=== PATIENT | male | born 1940 | race Caucasian/White ===

== ENCOUNTER 2018-04-10 15:40 | Emergency (ER) | payer MEDICARE, OTHER ==
--- NOTE | 2018-04-10 16:15 | C.PDOC ---
History Of Present Illness 77 year old male presents to the ED for evaluation of exacerbated right hand pain s/p mechanical injury sustained prior to arrival. The patient reports he was putting a file away in his office when the cabinet fell, instinctively he grabbed the cabinet causing him to strain the right hand. He also notes having right arm pain prior to the injury over the anterior cubital fossa of the right elbow that radiates to the forearm and into the wrist which has been exacerbated by the mechanical injury. Denies fever, chills, numbness, tingling, head injury, other injuries, and any other associated symptoms. Time Seen by Provider: 04/10/18 16:11 Chief Complaint (Nursing): Upper Extremity Problem/Injury History Per: Patient History/Exam Limitations: no limitations Onset/Duration Of Symptoms: Other (prior to arrival. ) Current Symptoms Are (Timing): Still Present Past Medical History Reviewed: Historical Data, Nursing Documentation, Vital Signs Vital Signs: Last Vital Signs Temp 97.5 F L 04/10/18 15:51 Pulse 66 04/10/18 15:51 Resp 18 04/10/18 15:51 BP 121/75 04/10/18 15:51 Pulse Ox 95 04/10/18 15:51 - Medical History PMH: Hypercholesterolemia Family History: States: Unknown Family Hx - Social History Hx Alcohol Use: No Hx Substance Use: No - Immunization History Hx Tetanus Toxoid Vaccination: No Hx Influenza Vaccination: No Hx Pneumococcal Vaccination: No Review Of Systems Except As Marked, All Systems Reviewed And Found Negative. Constitutional: Negative for: Fever, Chills Neurological: Negative for: Weakness, Numbness, Incoordination, Other (head inj ury. ) Physical Exam - Physical Exam Appears: Non-toxic, No Acute Distress Skin: Warm, Dry Head: Atraumatic, Normacephalic Eye(s): bilateral: Normal Inspection Extremity: Tenderness (tenderness to the : (+) anterior fossa. (+) right wrist. (+) right thumb. (-) bruising.), Capillary Refill (less than 2 seconds. ), No Deformity, No Swelling (to the right arm and hand. ) Pulses: Left Radial: Normal, Right Radial: Normal Neurological/Psych: Oriented x3, Normal Speech, Normal Cognition, Normal Motor, Normal Sensation, Normal Reflexes ED Course And Treatment O2 Sat by Pulse Oximetry: 95 (RA) Pulse Ox Interpretation: Normal - Other Rad RT Elbow xray X-Ray: Viewed By Me, Read By Radiologist Interpretation: FINDINGS: BONES: No acute displaced fracture. JOINTS: No dislocation. SOFT TISSUES: No evidence of radiopaque foreign body. JOINT EFFUSION: No significant joint effusion. OTHER FINDINGS: None. IMPRESSION: No acute displaced fracture, dislocation, or significant joint effusion identified. If high clinical index of suspicion, recommend cross-sectional imaging for further evaluation. Otherwise if symptoms persist, or if there is continued clinical concern, x-ray follow-up in 7-10 days should be considered. Medical Decision Making Medical Decision Making: Plan: -Tylenol Motrin Lidoderm -RT Elbow Xray Progress/Update: Patient stable for discharge home. Prescribed Motrin. Disposition Counseled Patient/Family Regarding: Studies Performed, Diagnosis, Rx Given - Disposition Disposition: HOSPITALIZED Disposition Time: 16:59 Condition: STABLE Additional Instructions: Please follow up with your bone/joint specialist. Prescriptions: Ibuprofen [Motrin] 1 tab PO TID PRN #30 tab PRN Reason: Pain Instructions: Sprain (DC) Forms: [facility] ([place]ian), General Discharge Instructions - POA Present On Arrival: None - Clinical Impression Clinical Impression: Sprain - Scribe Statement The provider has reviewed the documentation as recorded by the Scribe (Mendy Hernandez) Provider Attestation: All medical record entries made by the Scribe were at my direction and personally dictated by me. I have reviewed the chart and agree that the record accurately reflects my personal performance of the history, physical exam, medical decision making, and the department course for this patient. I have also personally directed, reviewed, and agree with the discharge instructions and disposition.
[2018-04-10] MEDS ORDERED: Lidocaine 5% Patch TD STA (16:17)
[2018-04-10] MEDS ORDERED: Lidocaine 5% Patch TD ONE (17:06)
--- NOTE | 2018-04-10 17:09 | RAD ---
PROCEDURE: Radiographs of the left elbow. HISTORY: sprain, r/o avulsion fracture COMPARISON: No prior radiographs available for direct comparison. FINDINGS: BONES: No acute displaced fracture. JOINTS: No dislocation. SOFT TISSUES: No evidence of radiopaque foreign body. JOINT EFFUSION: No significant joint effusion. OTHER FINDINGS: None IMPRESSION: No acute displaced fracture, dislocation, or significant joint effusion identified. If high clinical index of suspicion, recommend cross-sectional imaging for further evaluation. Otherwise if symptoms persist, or if there is continued clinical concern, x-ray follow-up in 7-10 days should be considered.
[2018-04-10 17:39] VITALS: BP 132/81; PULSE 84; RESP 20; TEMP 98.2
[2018-04-10 18:40] VITALS: O2SAT 95
== END 2018-04-10 17:42 | disposition home or self-care (01) ==
LOC: C.ER 15:40
DX: S63.91XA Sprain of unspecified part of right wrist and hand, initial encounter (principal); X58.XXXA Exposure to other specified factors, initial encounter; Y93.9 Activity, unspecified; Y92.89 Other specified places as the place of occurrence of the external cause; Y99.0 Civilian activity done for income or pay